=== PATIENT | female | born 2005 | race American Indian/Alaskan Native ===

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

== ENCOUNTER 2024-10-05 14:55 | Outpatient (CLI) | payer OTHER | END 2024-10-05 14:56 | disposition home or self-care (01) | LOC: RAD 14:55 | PROVIDERS: ATTEND Orthopaedic Surgery | DX: M25.461 Effusion, right knee (principal) ==

== ENCOUNTER 2024-10-06 14:44 | Outpatient (CLI) | payer OTHER | END 2024-10-06 14:51 | disposition home or self-care (01) | LOC: MRI 14:44 | PROVIDERS: ATTEND Orthopaedic Surgery | DX: M25.461 Effusion, right knee (principal) | CPT/HCPCS: 73721 ==